=== PATIENT | female | born 1950 | race Caucasian/White ===

== ENCOUNTER → 2021-07-12 | Outpatient (CLI) | payer MEDICARE ==
[~2021-07-12] MED LIST: ASPIRIN CHEWABL81 MG PO; DOSS PO; FOLBIC RF TABL1 EACH PO; LOVASTATIN10 MG PO; MECLIZINE HCL25 MG PO; PERCOCET 5-3251 EACH PO; PHENERGAN 12.12.5 M1 PO; VITAMIN B-125000 MCG SL; VITAMIN D250 MCG PO
== END ==
LOC: KOH-I 04-22 11:00
DX: F17.210 Nicotine dependence, cigarettes, uncomplicated (principal)
CPT/HCPCS: 71271